=== PATIENT | male | born 1995 | race Caucasian/White ===

== ENCOUNTER 2023-10-13 11:41 | Inpatient (IN) | payer BC, OTHER ==
[~2023-10-13] VITALS: Ht 188 cm; Wt 100.0 kg
[2023-10-13 13:03] VITALS: PULSE 91; RESP 20; O2SAT 97
[2023-10-13] MEDS: KETOROLAC TROMETH 30 MG/ML 1ML VIAL IV ONE (13:37)
[2023-10-13] MEDS: CYCLOBENZAPRINE HCL 10 MG TAB PO ONE (13:37)
[2023-10-13] MEDS ORDERED: ONDANSETRON HCL 4 MG/2 ML VIAL IV PRN (15:15)
[2023-10-13] MEDS ORDERED: DOCUSATE SOD 100 MG CAP PO PRN (15:15)
[2023-10-13] MEDS ORDERED: ACETAMINOPHEN 325 MG TAB PO PRN (15:15)
[2023-10-13 16:46] LABS: Hematocrit 43.2 % (41.0-53.0); Hemoglobin 14.3 g/dL (13.5-17.5); Mean Corpuscular Hemoglobin 28.2 pg (28.0-32.0); Mean Corpuscular Hgb Conc. 33.1 g/dL (32.0-36.0); Mean Corpuscular Volume 85.2 fL (80.0-100.0); Red Blood Cells 5.07 10^6/uL (4.5-5.90); Red Cell Distribution Width 13.3 % (11.8-14.3); White Blood Cell 21.9 10^3/uL (4.4-10.8)
[2023-10-13 16:48] LABS: Alanine Aminotransferase 34 U/L (7-40); Albumin 4.6 g/dL (3.2-4.8); Alkaline Phosphatase 68 U/L (46-116); Anion Gap 8 (5-15); Aspartate Aminotransferase 79 U/L (13-40); BUN/Creatinine Ratio 10.5 (10.0-20.0); Bilirubin, Total 1.1 mg/dL (0.2-1.0); Blood Urea Nitrogen 12 mg/dL (9-23); Calcium 9.5 mg/dL (8.7-10.4); Carbon Dioxide 28 mmol/L (20-30); Chloride 105 mmol/L (98-107); Glucose 110 mg/dL (74-106); Potassium 3.9 mmol/L (3.5-5.1); Sodium 141 mmol/L (136-145); Total Protein 7.1 g/dL (5.7-8.2)
[2023-10-13 16:56] LABS: Basophils % (manual) 0 (0.0-2.0); Blast Cells 0; Eosinophils % (manual) 0 (0-7); Myelocytes % 0; Promyelocytes % 0; Reactive Lymphocytes 0
[2023-10-13 16:59] LABS: Creatine Kinase IFCC 1880 U/L (46-171)
[2023-10-13 17:14] LABS: Lactic Acid w/Reflex 2.2 mmol/L (0.4-2.0)
[2023-10-13] MEDS: HYDROmorphone HCL 2 MG/ML VL/or syr IV PRN (17:40)
[2023-10-13 19:03] LABS: Band Neutrophils % (manual) 7; Lymphocytes % (manual) 9 (10.0-50.0); Metamyelocytes % 5; Monocytes % (manual) 4 (0-12)
[2023-10-13 19:04] LABS: Platelet Estimate Adequate
[2023-10-13] MEDS: SODIUM CHLOR 0.9% PF (SALINE LOCK) 10ML VIAL/SYR IV SCH (21:58)
[2023-10-13 22:00] VITALS: BP 127/51; PULSE 101; RESP 20; TEMP 99.3; O2SAT 95
[2023-10-14] VITALS (7 sets, daily range): BP systolic 118–130; BP diastolic 60–71; PULSE 81–98; RESP 18–20; TEMP 98.1–98.9; O2SAT 91–94
[2023-10-14] MEDS: HYDROcodone-ACET 5/325MG TAB PO PRN (06:07)
[2023-10-14] MEDS ORDERED: DOCU-265 PO (14:35)
[2023-10-14] MEDS ORDERED: CYCL-611 PO (14:35)
[2023-10-14] MEDS ORDERED: HYDR-4902 PO (14:35)
== END 2023-10-14 19:11 | disposition home or self-care (01) | DRG 552 ==
LOC: ER 11:41 → OVERFLOW 15:02 → WEST WING 18:37
PROVIDERS: ADMIT Internal Medicine; ATTEND Internal Medicine
DX: S32.019A Unspecified fracture of first lumbar vertebra, initial encounter for closed fracture (principal); V29.99XA Rider (driver) (passenger) of other motorcycle injured in unspecified traffic accident, initial encounter; Y93.55 Activity, bike riding; Y92.89 Other specified places as the place of occurrence of the external cause; V87.8XXA Person injured in other specified noncollision transport accidents involving motor vehicle (traffic), initial encounter
CPT/HCPCS: 36415; 72125; 72128; 72131; 80053; 82550; 83605; 85007; 85027; 97163; G0378; J1885